=== PATIENT | female | born 1935 | race Caucasian/White ===

== ENCOUNTER → 2017-02-22 | Outpatient (CLI) | payer OTHER ==
[~2017-02-22] MED LIST: ALEVE220 M1 PO; DAYPRO600 M1 PO; LISINOPRIL-HYDR1 TA3 PO; METFORMIN HCL1000 MG PO
[2017-02-22 10:32] LABS: CHOLESTEROL 222 mg/dL (<200); TRIGLYCERIDES 164 mg/dl (<150); VLDL CHOLESTEROL 33 mg/dL (6-40)
[2017-02-22 10:34] LABS: HDL CHOLESTEROL 54 mg/dl (40-60); LDL CHOLESTEROL 135 mg/dL (9-159)
[2017-02-22 11:13] LABS: HEMOGLOBIN A1c 7.5 % (4.8-5.6)
== END | disposition home or self-care (01) ==
LOC: LAB 09:08
PROVIDERS: Internal Medicine
DX: E78.5 Hyperlipidemia, unspecified (principal); E11.9 Type 2 diabetes mellitus without complications; R53.83 Other fatigue

== ENCOUNTER 2017-12-09 13:33 | Emergency (ER) | payer OTHER ==
[~2017-12-09] VITALS: Ht 154.9 cm; Wt 45.8 kg
[2017-12-09 14:47] LABS: BASO # 0.1 10*3/uL (0.0-0.1); BASO % 1.1 % (0.0-1.0); EOS # 0.1 10*3/uL (0.0-0.4); EOS % 2.2 % (1.0-4.0); HEMATOCRIT 37.1 % (37.0-47.0); HEMOGLOBIN 12.3 g/dl (12.0-16.0); LYMPH % 35.8 % (27.0-41.0); MEAN CORPUSCULAR HGB 30.8 pg (27.0-31.0); MEAN CORPUSCULAR HGB CONC 33.2 g/dl (33.0-37.0); MEAN PLATELET VOLUME 9.1 fl (9.6-12.3); MONO # 0.4 10*3/uL (0.1-1.0); MONO % 7.7 % (3.0-9.0); NEUT # 2.9 10*3/uL (2.3-7.9); NEUT % 52.8 % (47.0-73.0); PLATELET COUNT AUTOMATED 222 10*3/uL (130-400); RED BLOOD COUNT 3.99 10*6/uL (4.10-5.10); RED CELL DISTRI WIDTH 14.6 % (0-14.5); WHITE BLOOD COUNT 5.6 10*3/uL (4.8-10.8)
[2017-12-09 14:51] LABS: BILIRUBIN 1+ (NEGATIVE); BLOOD NEGATIVE (NEGATIVE); CLARITY CLEAR (CLEAR); COLOR YELLOW (YELLOW); GLUCOSE NEGATIVE (NEGATIVE); KETONE 1+ (NEGATIVE); LEUKO ESTERASE 1+ (NEGATIVE); NITRITE NEGATIVE (NEGATIVE); SPECIFIC GRAVITY 1.025 (1.005-1.030); UROBILINOGEN 0.2 E.U./dl (0.2-1.0)
[2017-12-09 14:59] LABS: BACTERIA 1+
[2017-12-09 15:05] LABS: ALBUMIN 3.7 gm/dl (3.1-4.5); CREATININE 1.42 mg/dL (0.55-1.02); POTASSIUM 4.4 mmol/L (3.5-5.1); TOTAL PROTEIN 6.9 gm/dL (6.4-8.2)
== END 2017-12-09 16:14 | disposition home or self-care (01) ==
LOC: ED 13:33
PROVIDERS: Nurse Practitioner Family
DX: R10.32 Left lower quadrant pain (principal); Z90.710 Acquired absence of both cervix and uterus; Z79.899 Other long term (current) drug therapy

== ENCOUNTER → 2018-01-07 | Outpatient (CLI) | payer OTHER ==
--- NOTE | ~2018-01-07 | SLPIE ---
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 Please see [employer] for details. Rehabilitation Information / History Clinical Findings Functional Goals Functional Limitation Reporting Motor Speech G8999 - Motor speech functional limitation, current status at therapy episode outset and at reporting intervals Current Status: CI - At least 1 percent but less than 20 percent impaired, limited or restricted G9186 - Motor speech functional limitation, projected goal status at therapy episode outset, at reporting intervals, and at discharge from or to end reporting Goal Status: CI - At least 1 percent but less than 20 percent impaired, limited or restricted G9158 - Motor speech functional limitation, discharge status, at discharge from therapy or to end reporting Discharge Status: CI - At least 1 percent but less than 20 percent impaired, limited or restricted 01/07/2018 3:55:27 PM RADHA Mclean-PALLIATIVE SENIOR NP Date/Time [place], [place] PALLIATIVE SENIOR NP INITIAL EVALUATION NAME: LUCIA DUONG UNIT #: [id number] ROOM: DOCTOR: NEAL LINN MD [facility] License #: [id number] CM:MER [id number] [facility]
--- NOTE | ~2018-01-07 | PROC NOTE ---
[place], [place] PROCEDURE NOTE NAME: LUCIA DUONG UNIT #: [id number] ROOM: DOCTOR: MALLY MAYSANN BIRTHDATE: [birth year] DOS: 01/07/2018 MODIFIED BARIUM SWALLOW ORDERING PHYSICIAN: Dr. Linn. RADIOLOGIST: Dr. Ward. BACKGROUND INFORMATION: The patient is an 82-year-old female who was seen for modified barium swallow. This test was ordered to view the anatomy and physiology of the swallow and rule out aspiration. The patient reported that she feels like she cannot get liquids past her oral cavity to swallow and that now she is starting to have difficulty with foods as well. She reported that this has been occurring for a while and that she has lost several pounds over the past month. The patient currently consumes a regular diet and thin liquids. Medical history is significant for DM and HTN. For today's assessment, she was alert and able to follow commands. Respiratory status was within normal limits. Oral peripheral examination revealed presence of upper and lower dentures. The patient reported loose fitting dentures. Peoples, labial and buccal skills were within normal limits in terms of strength, range of motion and coordination. The patient was able to lateralize and depress her tongue. She only had difficulty with extraoral elevation of the tongue. The patient was able to volitionally cough and swallow. The patient appeared anxious and fearful before food or liquid was given that would not be able to swallow or would choke on the item given. Encouragement was provided, which seemed to ease her mind at the time. METHODS AND MATERIALS USED FOR THE EXAM: The patient was positioned in the lateral plane and the exam was viewed under fluoroscopy. The patient was presented with a variety of consistencies to assess swallowing skills including applesauce mixed with barium taken in half teaspoon amounts. The patient was also given barium coated banana in bite size piece, barium-coated cookie was attempted, but refused by the patient. She took thin liquid barium by cup in single sip size amounts. ORAL PHASE: The patient achieved adequate labial seal around cup and spoon with no anterior loss. Bolus formation was adequate. Oral transit time was slow and consisted of a repetitive anterior to posterior propulsion prior to initiation of the swallow. This appeared to be due to the patient's anxiety over possibly not being able to swallow the items given. The patient require encouragement to take presentations large enough to be viewed. With repeated encouragement, she did show improved propulsion of the item taken. Tongue to palate contact was adequate. Tongue retraction was adequate and Peoples functioning was adequate. PHARYNGEAL PHASE: Unremarkable. ESOPHAGEAL PHASE: This phase of the swallow was not formally assessed during this exam. IMPRESSIONS AND RECOMMENDATIONS: Based upon assessment results, this [place], [place] PROCEDURE NOTE NAME: LUCIA DUONG UNIT #: [id number] ROOM: DOCTOR: MICAELA MAYS BIRTHDATE: [birth year] 82-year-old patient presented with slow bolus propulsion of all consistencies given. A repetitive anterior to posterior propulsion was observed prior to her initiating a swallow with any item, Encouragement and prompts were needed and effective once she swallowed no penetration or aspiration occurred. The patient did appear fearful that she may not be able to swallow the item taken. Recommend a regular diet and thin liquids. Recommend use of universal safe swallow precautions such as small bites and sips, sitting upright and chewing thoroughly. Results and recommendations were shared with the patient and her daughter and they verbalized understanding. Thank you very much for this referral. Should you have any questions regarding this patient, please contact the speech pathologist at [phone]. MICAELA MAYS NEAL LINN MD CM:PROCNOTE:PROCEDURE NOTE [id number] MICAELA MAYS
--- NOTE | ~2018-01-07 | SLPPN ---
[place], [place] HARVEST SUPERVISOR PROGRESS NOTE NAME: LUCIA DUONG UNIT #: [id number] ROOM: DOCTOR: TEMITOPE MORALES,NEAL Speech Language Pathology Treatment Note Page 1 1 of Patient Name: LUCIA DUONG Date: 01/07/2018 03:55 PM : 1935 SOC Date: 01/07/2018 [facility]: [facility] Provider #: [id number] Treating Clinician: RADHA Mclean-HARVEST SUPERVISOR Referring Physician: NEAL LINN Onset Date Description Code Primary Diagnosis: 01/07/2018 A0000 NO DIAGNOSIS SENT TO THE [facility] Time In: 10:00 AM Time Out: 11:00 AM HARVEST SUPERVISOR Interventions and CPT Codes Consisted of: CPT Code Modifiers Minutes Units MOTION FLUOROSCOPY/SWALLOW 88909 60 1 Total Minutes: 60 Total Timed Minutes: 0 Total Untimed Minutes: 60 Total Units: 1 Total Timed Units: 0 Total Untimed Units: 1 01/07/2018 3:56:14 PM RADHA Mclean-HARVEST SUPERVISOR Date/Time State License #: [id number] CM:ADOLFO [id number] IS THERAPY [facility]
--- NOTE | ~2018-01-07 | SLPPOC ---
[place], [place] ANIMAL STUNNER PLAN OF CARE NAME: LUCIA DUONG UNIT #: [id number] ROOM: DOCTOR: NEAL LINN MD Speech Language Pathology Plan of Care Page 1 1 (Initial Evaluation) of Patient Name: LUCIA DUONG Date: 01/07/2018 03:54 PM : 1935 SOC Date: 01/07/2018 Provider: [facility] Provider #: [id number] Treating Clinician: RADHA Mclean-ANIMAL STUNNER Referring Physician: NEAL LINN 1 Visits From SOC: Onset Date Description Code Primary Diagnosis: 01/07/2018 A0000 NO DIAGNOSIS SENT TO THE [facility] Subjective Comments: Initial evaluation created to initiate the electronic medical record. Please see [facility] for details. Initial Level Goals Functional Limitation Reporting Motor Speech G8999 - Motor speech functional limitation, current status at therapy episode outset and at reporting intervals Current Status: CI - At least 1 percent but less than 20 percent impaired, limited or restricted G9186 - Motor speech functional limitation, projected goal status at therapy episode outset, at reporting intervals, and at discharge from or to end reporting Goal Status: CI - At least 1 percent but less than 20 percent impaired, limited or restricted G9158 - Motor speech functional limitation, discharge status, at discharge from therapy or to end reporting Discharge Status: CI - At least 1 percent but less than 20 percent impaired, limited or restricted 01/07/2018 3:55:27 PM NEAL LINN Date/Time RADHA Mclean-ANIMAL STUNNER Date I certify the need for these services furnished under this plan of treatment while under my care. State License #: [id number] CM:SLPPOC [id number] [facility]
== END | disposition home or self-care (01) ==
LOC: RAD/SH 09:42
DX: R13.12 Dysphagia, oropharyngeal phase (principal)

== ENCOUNTER → 2019-10-08 | Outpatient (CLI) | payer OTHER ==
[2019-10-08 10:00] LABS: POTASSIUM 4.4 mmol/L (3.5-5.1)
[2019-10-08 10:19] LABS: CREATININE 1.4 mg/dL (0.55-1.02); THYROID STIM HORMONE (HS) 5.42 uIU/ml (0.358-4.75)
== END | disposition home or self-care (01) ==
LOC: LAB 08:34
PROVIDERS: Family Medicine
DX: E11.9 Type 2 diabetes mellitus without complications (principal); I10 Essential (primary) hypertension

== ENCOUNTER → 2021-04-04 | Outpatient (CLI) | payer OTHER ==
[2021-04-04 10:04] LABS: CREATININE 1.36 mg/dL (0.55-1.02); POTASSIUM 4.1 mmol/L (3.5-5.1)
[2021-04-04 10:09] LABS: THYROID STIM HORMONE (HS) 3.73 uIU/ml (0.358-4.75)
== END | disposition home or self-care (01) ==
LOC: LAB 08:57
PROVIDERS: ATTEND Family Medicine
DX: E11.9 Type 2 diabetes mellitus without complications (principal); I10 Essential (primary) hypertension; F45.8 Other somatoform disorders

== ENCOUNTER → 2022-06-11 | Outpatient (CLI) | payer OTHER ==
[2022-06-11 09:02] LABS: CREATININE 1.99 mg/dL (0.55-1.02); POTASSIUM 4.4 mmol/L (3.5-5.1)
[2022-06-11 09:07] LABS: THYROID STIM HORMONE (HS) 3.62 uIU/ml (0.358-4.75)
== END | disposition home or self-care (01) ==
LOC: LAB 08:14
PROVIDERS: ATTEND Family Medicine
DX: E11.9 Type 2 diabetes mellitus without complications (principal); E03.9 Hypothyroidism, unspecified

== ENCOUNTER → 2022-08-02 | Outpatient (CLI) | payer OTHER ==
[2022-08-02 10:25] LABS: CREATININE 1.82 mg/dL (0.55-1.02); POTASSIUM 4.7 mmol/L (3.5-5.1)
== END | disposition home or self-care (01) ==
LOC: LAB 09:44
PROVIDERS: ATTEND Family Medicine
DX: E11.22 Type 2 diabetes mellitus with diabetic chronic kidney disease (principal); N18.4 Chronic kidney disease, stage 4 (severe)

== ENCOUNTER → 2022-12-01 | Outpatient (CLI) | payer OTHER ==
[2022-12-01 09:45] LABS: POTASSIUM 4.5 mmol/L (3.4-5.1); THYROID STIM HORMONE (HS) 4.23 uIU/ml (0.550-4.780)
== END | disposition home or self-care (01) ==
LOC: LAB 08:27
PROVIDERS: ATTEND Family Medicine
DX: I12.9 Hypertensive chronic kidney disease with stage 1 through stage 4 chronic kidney disease, or unspecified chronic kidney disease (principal); E11.22 Type 2 diabetes mellitus with diabetic chronic kidney disease; N18.4 Chronic kidney disease, stage 4 (severe)

== ENCOUNTER → 2023-06-08 | Outpatient (CLI) | payer OTHER ==
[2023-06-08 08:28] LABS: POTASSIUM 4.9 mmol/L (3.4-5.1)
== END | disposition home or self-care (01) ==
LOC: LAB 07:37
PROVIDERS: ATTEND Family Medicine
DX: I10 Essential (primary) hypertension (principal); E11.9 Type 2 diabetes mellitus without complications

== ENCOUNTER → 2024-04-02 | Outpatient (CLI) | payer OTHER ==
[2024-04-02 09:38] LABS: POTASSIUM 4.6 mmol/L (3.4-5.1)
== END | disposition home or self-care (01) ==
LOC: LAB 08:13
PROVIDERS: ATTEND Family Medicine
DX: I10 Essential (primary) hypertension (principal); E11.9 Type 2 diabetes mellitus without complications

== ENCOUNTER → 2024-08-13 | Outpatient (CLI) | payer OTHER ==
[2024-08-13 10:36] LABS: BASO # 0.1 10*3/uL (0.0-0.1); EOS # 0.2 10*3/uL (0.0-0.4); EOS % 2.9 % (1.0-4.0); HEMATOCRIT 37.5 % (37.0-47.0); LYMPH # 1.5 10*3/uL (1.3-4.4); MEAN CORPUSCULAR HGB 30.3 pg (27.0-31.0); MEAN CORPUSCULAR HGB CONC 32.3 g/dl (33.0-37.0); MONO # 0.7 10*3/uL (0.1-1.0); MONO % 9.6 % (3.0-9.0); NEUT # 4.8 10*3/uL (2.3-7.9); NEUT % 66.2 % (47.0-73.0); PLATELET COUNT AUTOMATED 262 10*3/uL (130-400); RED BLOOD COUNT 3.99 10*6/uL (4.10-5.10); RED CELL DISTRI WIDTH 15.2 % (0-14.5); WHITE BLOOD COUNT 7.3 10*3/uL (4.8-10.8)
[2024-08-13 11:05] LABS: FREE T4 1.46 ng/dl (0.89-1.76); POTASSIUM 4.9 mmol/L (3.4-5.1); TOTAL PROTEIN 7.2 gm/dL (6.0-8.0)
[2024-08-13 11:33] LABS: VITAMIN D, 25-HYDROXY 37.4 ng/mL (30-100)
== END | disposition home or self-care (01) ==
LOC: LAB 09:55
PROVIDERS: ATTEND Internal Medicine
DX: I10 Essential (primary) hypertension (principal); E78.5 Hyperlipidemia, unspecified; E11.65 Type 2 diabetes mellitus with hyperglycemia; R53.83 Other fatigue; E55.9 Vitamin D deficiency, unspecified; E53.9 Vitamin B deficiency, unspecified

== ENCOUNTER → 2024-12-24 | Outpatient (CLI) | payer OTHER | END | disposition home or self-care (01) | LOC: US 14:04 | PROVIDERS: ATTEND Internal Medicine | DX: R09.89 Other specified symptoms and signs involving the circulatory and respiratory systems (principal); M79.672 Pain in left foot; E11.9 Type 2 diabetes mellitus without complications; I10 Essential (primary) hypertension ==

== ENCOUNTER → 2025-07-10 | Outpatient (CLI) | payer OTHER ==
[2025-07-10 08:24] LABS: BASO # 0.0 10*3/uL (0.0-0.1); BASO % 0.6 % (0.0-1.0); EOS # 0.2 10*3/uL (0.0-0.4); EOS % 2.4 % (1.0-4.0); MEAN CELL VOLUME 99.2 fl (81.0-99.0); MEAN CORPUSCULAR HGB 31.6 pg (27.0-31.0); MEAN PLATELET VOLUME 8.6 fl (9.6-12.3); MONO # 0.6 10*3/uL (0.1-1.0); MONO % 9.5 % (3.0-9.0); NEUT # 3.9 10*3/uL (2.3-7.9); NEUT % 62.9 % (47.0-73.0); NUCLEATED RED BLOOD CELL 0.0 % (0.0-0.0); NUCLEATED RED BLOOD CELL 0.0 10*3/uL (0.0-0.0); PLATELET COUNT AUTOMATED 214 10*3/uL (130-400); RED CELL DISTRI WIDTH 15.6 % (0-14.5)
[2025-07-10 08:55] LABS: BUN 38.0 mg/dl (9-23); FREE T4 1.25 ng/dl (0.89-1.76); LDL CHOLESTEROL 53.0 mg/dL (9-159); SGPT/ALT 12.0 U/L (5-49)
[2025-07-10 09:20] LABS: VITAMIN D, 25-HYDROXY 34.5 ng/mL (30-100)
== END | disposition home or self-care (01) ==
LOC: LAB 08:02
PROVIDERS: ATTEND Internal Medicine
DX: E55.9 Vitamin D deficiency, unspecified (principal); D51.9 Vitamin B12 deficiency anemia, unspecified; E11.9 Type 2 diabetes mellitus without complications; I10 Essential (primary) hypertension; Z13.0 Encounter for screening for diseases of the blood and blood-forming organs and certain disorders involving the immune mechanism; Z13.1 Encounter for screening for diabetes mellitus; Z13.21 Encounter for screening for nutritional disorder; Z13.220 Encounter for screening for lipoid disorders; Z13.228 Encounter for screening for other metabolic disorders; Z13.6 Encounter for screening for cardiovascular disorders; Z13.89 Encounter for screening for other disorder